=== PATIENT | male | born 1985 ===

== ENCOUNTER 2022-12-10 07:09 | Outpatient (REF) | payer OTHER, SELFPAY ==
[2022-12-10 11:04] LABS: MANUAL DIFF FLAG NO
[2022-12-10 11:12] LABS: Basophils Absolute Auto 0.1 X10*3/uL (0.0-0.2); Basophils Percent Auto 0.8 % (0-2); Eosinophils Absolute Auto 0.4 X10*3/uL (0.0-0.4); Eosinophils Percent Auto 5.4 % (0-4); Hematocrit 37.8 % (42.0-52.0); Hemoglobin 12.8 g/dl (14.0-18.0); Imm Gran Abs Auto 0.02 X10*3/uL (0.00-0.03); Imm Gran Pct Auto 0.3 % (0.0-0.4); Lymphocytes Absolute Auto 2.7 X10*3/uL (1.2-4.9); Lymphocytes Percent Auto 33.8 % (20-40); Mean Corpuscular HGB Conc 33.9 g/dl (31.0-36.0); Mean Corpuscular Hemoglobin 31.4 pg (27.0-33.0); Mean Corpuscular Volume 92.9 fL (80.0-98.0); Mean Platelet Volume 10.8 fL (9.4-12.4); Monocytes Absolute Auto 0.7 X10*3/uL (0.1-1.2); Monocytes Percent Auto 8.8 % (2-11); Neutrophils Percent Auto 50.9 % (45-73); Platelet Count 222 X10*3/uL (160-400); Red Blood Count 4.07 X10*6/uL (4.60-5.80); Red Cell Distribution Width 12.4 % (11.0-16.0); White Blood Count 7.8 X10*3/uL (4.8-10.8)
[2022-12-10 11:27] LABS: Alanine Aminotransferase 36 U/L (0-40); Albumin Level 4.5 g/dL (3.5-5.0); Alkaline Phosphatase 107 U/L (39-117); Anion Gap 10 (12-20); Aspartate Amino Transferase 28 U/L (5-37); Bilirubin Total 0.4 mg/dL (0.0-1.0); Blood Urea Nitrogen 24 mg/dL (9-16); Calcium 9.7 mg/dL (8.4-10.2); Carbon Dioxide 31 mmol/L (22-29); Chloride 105 mmol/L (96-108); Cholesterol 169 mg/dL; Estimated Glomerular Filt Rate > 60; Glucose Fasting 96 mg/dL (60-99); HDL Cholesterol 47 mg/dL; LDL Cholesterol Calculated 94 mg/dl; Sodium 142 mmol/L (135-145); Triglycerides 144 mg/dL
[2022-12-10 11:43] LABS: Erythrocyte Sedimentation Rate 6 MM/HR (0-15)
[2022-12-10 11:44] LABS: TSH reflex Free T4 1.88 uIU/mL (0.32-4.0)
== END 2022-12-10 07:10 | disposition home or self-care (01) ==
LOC: HO.WFDLDS 07:09
PROVIDERS: Visit Provider Nurse Practitioner Family
DX: Z00.00 Encounter for general adult medical examination without abnormal findings (principal); L40.9 Psoriasis, unspecified; M25.50 Pain in unspecified joint; F32.A Depression, unspecified; F41.9 Anxiety disorder, unspecified
CPT/HCPCS: 36415; 80053; 80061; 84443; 85025; 85652

== ENCOUNTER 2023-07-30 13:00 | Outpatient (AMB) | payer OTHER, SELFPAY ==
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
[2023-07-30 13:04] VITALS: BP 108/66; PULSE 84; RESP 13; TEMP 36.4; O2SAT 99; BMI 22.7
== END 2023-07-30 13:48 | disposition home or self-care (01) ==
PROVIDERS: PCP Nurse Practitioner Family; Visit Provider Nurse Practitioner Family
DX: M54.2 Cervicalgia (principal); M25.531 Pain in right wrist; M25.532 Pain in left wrist; R51.9 Headache, unspecified; H92.02 Otalgia, left ear; H61.22 Impacted cerumen, left ear
CPT/HCPCS: 99214

== ENCOUNTER 2023-11-20 11:00 | Outpatient (AMB) | payer OTHER, SELFPAY ==
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
[2023-11-20 11:28] VITALS: BMI 22.6
== END 2023-11-20 13:54 | disposition home or self-care (01) ==
PROVIDERS: PCP Nurse Practitioner Family; Visit Provider Physician Assistant
DX: M71.331 Other bursal cyst, right wrist (principal)
CPT/HCPCS: 99203

== ENCOUNTER → 2023-11-20 11:00 | Outpatient (BNVA) | payer OTHER, SELFPAY | PROVIDERS: PCP Nurse Practitioner Family; Visit Provider Physician Assistant ==

== ENCOUNTER 2024-01-22 09:14 | Outpatient (REF) | payer OTHER, SELFPAY ==
--- NOTE | ~2024-01-22 | MR_ITS ---
EXAMINATION: MR WRIST WITHOUT AND WITH CONTRAST, RIGHT CLINICAL INFORMATION: Right wrist pain. Ganglion. Weakness. COMPARISON: Right wrist radiographs dated 01/13/2014. TECHNIQUE: MRI of the wrist was performed before and after the intravenous administration of 8 mL Gadavist on a high-field scanner. FINDINGS: TRIANGULAR FIBROCARTILAGE: Intact. INTRINSIC LIGAMENTS: Intact. TENDONS/MEDIAN NERVE: Trace fluid within the extensor carpi radialis brevis and extensor carpi radialis longus tendon sheaths, consistent with minimal tenosynovitis. No transverse tendon tear or tendon retraction. Intact median nerve. ARTICULAR CARTILAGE/BONE: Mild prominence of Elizabeth's tubercle in the region of the overlying skin marker. No edema or evidence of acute inflammatory change. No acute fracture or dislocation. Normal carpal alignment. Intact articular cartilage. No concerning lytic or blastic osseous lesion. JOINT FLUID/SOFT TISSUES: No significant joint effusion. Tiny synovial recess versus ganglion cyst interposed between the distal aspect of the capitate and hamate measuring up to 0.4 cm. No additional ganglion cyst. No soft tissue mass. No abnormal soft tissue enhancement. MR/MR wrist RT wo/w con IMPRESSION: 1. Mild prominence of Elizabeth's tubercle in the region of the overlying skin marker. No edema or evidence of acute inflammatory change. 2. Tiny synovial recess versus ganglion cyst interposed between the distal aspect of the capitate and hamate measuring up to 0.4 cm. 3. Minimal extensor carpi radialis brevis and extensor carpi radialis longus tenosynovitis without a measurable tendon tear.
[2024-01-22] MEDS: gadobutroL 10 ML VIAL IVPUSH (11:00)
== END 2024-01-22 09:15 | disposition home or self-care (01) ==
LOC: HO.MRI 09:14
PROVIDERS: PCP Nurse Practitioner Family; Visit Provider Physician Assistant
DX: M71.331 Other bursal cyst, right wrist (principal)
CPT/HCPCS: 73223; A9585

== ENCOUNTER 2024-03-09 13:43 | Outpatient (AMB) | payer OTHER, SELFPAY ==
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
[2024-03-09 13:50] VITALS: BMI 22.8
== END 2024-03-09 14:07 | disposition home or self-care (01) ==
PROVIDERS: PCP Nurse Practitioner Family; Visit Provider Physician Assistant
DX: M71.331 Other bursal cyst, right wrist (principal)
CPT/HCPCS: 99213; G2211

== ENCOUNTER → 2024-03-09 13:43 | Outpatient (BNVA) | payer OTHER, SELFPAY | PROVIDERS: PCP Nurse Practitioner Family; Visit Provider Physician Assistant ==

== ENCOUNTER 2024-04-01 08:57 | Outpatient (AMB) | payer OTHER, SELFPAY ==
[2024-04-01 09:06] VITALS: BMI 22.8
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
== END 2024-04-01 09:32 | disposition home or self-care (01) ==
PROVIDERS: PCP Nurse Practitioner Family; Visit Provider Orthopaedic Surgery
DX: M77.8 Other enthesopathies, not elsewhere classified (principal); Z04.3 Encounter for examination and observation following other accident
CPT/HCPCS: 99214

== ENCOUNTER → 2024-04-01 08:57 | Outpatient (BNVA) | payer OTHER, SELFPAY | PROVIDERS: PCP Nurse Practitioner Family; Visit Provider Orthopaedic Surgery ==

== ENCOUNTER 2024-05-11 14:30 | Outpatient (RCR) | payer OTHER, SELFPAY ==
--- NOTE | 2024-04-20 15:32 | MHC.OT.EP ---
[address] [phone] Occupational Therapy Plan of Care Patient Name: Carson García Date of Evaluation: 04/20/24 Diagnosis: R wrist tendonitis Pain Location: dorsal/ radial side of wrist and forearm Pain Score: 7 Pain Scale Used: Numeric (0 - 10) Aggravating Factors: repetitive use Alleviating Factors: rest Assessment: Pt is a 41 yr. old R hand dominant who reports R wrist pain for over several mos now; which has worsened. He reports grabbing and twisting exacerbates the sx's. 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 Pt has tried bracing it w/ OTC splints but reports they have made sx's worse. He reports pain w/ palpation of the 1st and 2nd DC. Pt has been referred to skilled OT Therapy for decreased pain and increased strength and functional use of his dominant hand Frequency and Duration: The patient will be seen 2xs a week for 6 weeks Short Term Goals: Pt will be compliant w/ joint protection techniques Pt will adhere to orthoses wear and care Pt will be complaint w/ his HEP [employer] Goals: Pt will report 0/10 pain Pt will report being able to carry ten lbs in his R hand for a consecutive 3 min. w/out pain Pt will have a DASH>15% Treatment Plan: Therapeutic Exercise Therapeutic Activity Home Exercise Program Splinting Neuro Re-ed Patient Education Desensitization/Sensory Re-ed Edema Control ADL Training Ultrasound NMES Iontophoresis Paraffin Fluidotherapy MHP Cold Packs Joint Mobilization Soft Tissue Mobilization Kinesiotaping Other (see comments) Electronically Signed By: Sara Barajas OTR/L Please Sign and return to therapist. Thank you once again for your referral.
== END 2024-05-11 14:58 | disposition home or self-care (01) ==
LOC: HO.OT 14:30
PROVIDERS: PCP Nurse Practitioner Family; Visit Provider Orthopaedic Surgery
DX: M77.8 Other enthesopathies, not elsewhere classified (principal)
CPT/HCPCS: 29125; 97110; 97140; 97166; 97535; 97760